=== PATIENT | male | born 1965 | race Caucasian/White ===

== ENCOUNTER → 2019-05-09 09:55 | Outpatient (CLI) | payer OTHER, SELFPAY ==
[2019-05-09 12:55] LABS: Anion Gap 6 (5-15); BUN 18 mg/dL (7-18); Calcium,Total 8.5 mg/dL (8.5-10.1); Chloride 105 mmol/L (98-107); Cholesterol 187 mg/dL (200); EST Glomerular Filtration Rate 93 mL/min (>60); Est Glom Filt Rate - Afr Amer 113 mL/min (>60); Glucose 90 mg/dL (74-106); High Density Lipoprotein 43 mg/dL; PSA,Total - Annual Screen 1.48 ng/mL (0.00-4.00); Potassium 3.7 mmol/L (3.5-5.1); Sodium Level 139 mmol/L (136-145); Triglycerides 154 mg/dL; Very Low Density Lipoprotein 31 mg/dL (5-40)
== END ==
PROVIDERS: Family Provider Family Medicine; PCP Family Medicine; Referring Provider Family Medicine; Visit Provider Nurse Practitioner Family
DX: Z00.00 Encounter for general adult medical examination without abnormal findings (principal)
CPT/HCPCS: 36415; 80048; 80061; 84153; G0103

== ENCOUNTER → 2020-04-27 10:31 | Outpatient (CLI) | payer OTHER, SELFPAY ==
[2020-04-27 12:51] LABS: Magnesium 1.6 mg/dL (1.6-2.6)
== END ==
PROVIDERS: PCP Family Medicine; Referring Provider Family Medicine; Visit Provider Family Medicine
DX: K21.9 Gastro-esophageal reflux disease without esophagitis (principal)
CPT/HCPCS: 36415; 83735; 84153; G0103

== ENCOUNTER 2020-05-01 12:53 | Emergency (ER) | payer OTHER, SELFPAY ==
[2020-05-01 12:53] VITALS: BP 157/109; PULSE 105; RESP 21; TEMP 36.7; O2SAT 100; BMI 36.3
[2020-05-01 12:57] VITALS: TEMP 36.7; O2SAT 100
[2020-05-01] MEDS: Ondansetron 4 MG/2 ML Vial IV (13:05)
[2020-05-01] MEDS: Morphine 4 MG/ML Syringe IV (13:05)
--- NOTE | 2020-05-01 13:13 | ED.DCSUM_ITS ---
- ER Visit Summary Date of Service: 05/01/20 Chief Complaint: Fall from 18 feet History of Present Illness: The patient is a [address] Pringle. He fell approximately 18 feet out of a tree stand. He denies any blow to the head or loss of consciousness. He is not on anticoagulants. He complains of neck pain is 5-10 in severity. Complains of back pain that is 6 out of 10 in severity. He complains of left shoulder pain is 8 out of 10 in severity. He denies any chest pain. However, he reports that initially he coughed up a small amount of blood. He denies being short of breath. Patient denies any right shoulder pain, wrist, or hip pain. Has been able to ambulate without difficulty. He denies pain to his feet. He denies any numbness or weakness. Physical Examination: Vitals: Stable. Afebrile. Neck: Mild diffuse tenderness palpation over his entire C-spine. No point tenderness. Back: Mild tenderness palpation over the lower thoracic spine and moderate tenderness of patient to the lumbar spine. General: A&O x 3. NAD. Cardiovascular exam: Regular rate and rhythm, no murmur, rub or gallop. Respiratory exam: Chest nontender. No crepitus. Clear to auscultation bilaterally. No wheezes or stridor. No pain with anterior posterior lateral compression of his chest. Abdominal exam: Soft, nontender, nondistended, normal bowel sounds. No pain in RUQ or LUQ specifically. No peritoneal signs. Extremity: Mild tenderness palpation over the left deltoid. No pain over the left clavicle.. Test Results: Clinical Impression(s) from Imaging Studies Cervical Spine X-Ray 05/01/20 13:20 IMPRESSION: Limited due to obscuration of the lower cervical spine. No obvious fracture or malalignment. Degenerative changes. Electronically Signed: Michel Carson MD (Bro[place]) at 14:08 EDT , Service support , Chest X-Ray 05/01/20 13:20 IMPRESSION: Left perihilar infiltrate could represent atelectasis, pulmonary contusion in setting of trauma or pneumonia, including aspiration type. Electronically Signed: Michel Carson MD (Brooks) at 14:09 EDT , Service support , Lumbar Spine X-Ray 05/01/20 13:20 IMPRESSION: Slight L1 compression fracture, indeterminate age. Recommend correlating with CT and/or MRI. Electronically Signed: Michel Carson MD (Brooks) at 14:13 EDT , Service support , Shoulder X-Ray 05/01/20 13:20 IMPRESSION: Possible nondisplaced fracture of the distal clavicle. Recommend correlating with clinical palpation. Electronically Signed: Michel Carson MD (Brooks) at 14:12 EDT , Service support , Thoracic Spine X-Ray 05/01/20 13:20 IMPRESSION: Degenerative changes. No demonstrated compression fracture. Electronically Signed: Michel Carson MD (Brooks) at 14:11 EDT , Service support , Emergency Department Course and Treatment: Patient had an IV placed. He was given morphine and Zofran IV. He is resting more comfortably. However, his pulse ox is down to 91% on room air. Treatment Plan: Had prolonged discussion with patient about his mechanism of injury and need for transfer to a trauma center. He agrees with this and asked for [facility]. He was discussed with the emergency department there will be transferred for further evaluation and treatment. Disposition: Transferred in improved condition. Impression: 1. Fall from 18 feet. 2. L1 compression fracture. 3. Pulmonary contusion. This note was generated with [employer] software. It may contain incorrect words, spelling, and punctuation that were not noted in review of the chart prior to signing ED Disposition - Plan for ED Patient: Referrals: Precious Pringle MD [Primary Care Provider] -
--- NOTE | 2020-05-01 13:20 | RAD_ITS ---
STUDY: X-RAY - LEFT SHOULDER REASON FOR EXAM: Male, 55 years old. FELL APPROX 18 FEET OUT OF TREE STAND. NOW COUGHING UP BLOOD AND SOB. TECHNIQUE: 3 view(s) of the shoulder. COMPARISON: None. FINDINGS: Normal glenohumeral articulation. Normal acromioclavicular joint. Normal acromion. On the AP view, there is subtle linear lucency along the inferior distal clavicle. Coracoclavicular joint is normal. Normal humeral head and visualized proximal humerus. The soft tissue structures are unremarkable. Normal visualized pulmonary apex. RAD/Shoulder min 2 Views IMPRESSION: Possible nondisplaced fracture of the distal clavicle. Recommend correlating with clinical palpation. Electronically Signed: Michel Carson MD (Brooks) at 14:12 EDT , Service support ,
--- NOTE | 2020-05-01 13:20 | RAD_ITS ---
STUDY: X-RAY - THORACIC SPINE REASON FOR EXAM: Male, 55 years old. FELL APPROX 18 FEET OUT OF TREE STAND. NOW COUGHING UP BLOOD AND SOB. TECHNIQUE: 3 view(s) of the thoracic spine were obtained. COMPARISON: None. FINDINGS: Normal kyphosis of the thoracic spine. There is no substantial scoliosis. There is multilevel endplate spondylosis of the thoracic vertebrae. There is multilevel disc space narrowing of the thoracic spine. No demonstrated fracture. The soft tissue structures are unremarkable. RAD/Thoracic Spine 3 Views IMPRESSION: Degenerative changes. No demonstrated compression fracture. Electronically Signed: Michel Carson MD (Brooks) at 14:11 EDT , Service support ,
--- NOTE | 2020-05-01 13:20 | RAD_ITS ---
STUDY: X-RAY CHEST REASON FOR EXAM: Male, 55 years old. FELL APPROX 18 FEET OUT OF TREE STAND. NOW COUGHING UP BLOOD AND SOB. TECHNIQUE: AP COMPARISON: None. FINDINGS: There is patchy opacity of the left perihilar lung. EKG leads project over the chest. There is no demonstrated pleural abnormality. Normal size heart. Normal mediastinum and moses. Normal visualized pulmonary arteries. Normal visualized aortic arch and descending thoracic aorta. Normal visualized thoracic spine. Normal visualized ribs, clavicles, and shoulders. There is no demonstrated abnormality of the visualized soft tissue structures of the upper abdomen. RAD/Chest 1 View (Portable) IMPRESSION: Left perihilar infiltrate could represent atelectasis, pulmonary contusion in setting of trauma or pneumonia, including aspiration type. Electronically Signed: Michel Carson MD (Brooks) at 14:09 EDT , Service support ,
--- NOTE | 2020-05-01 13:20 | RAD_ITS ---
STUDY: X-RAY - LUMBAR SPINE REASON FOR EXAM: Male, 55 years old. FELL APPROX 18 FEET OUT OF TREE STAND. NOW COUGHING UP BLOOD AND SOB. TECHNIQUE: 3 view(s) of the lumbar spine were obtained. COMPARISON: None FINDINGS: Normal lumbar lordosis. There is no substantial scoliosis. There is a normal alignment of the vertebrae. There is multilevel endplate spondylosis of the lumbar vertebrae. There is multi-level degenerative disc disease with multi-level disc space narrowing. There is slight compression deformity involving L1. There is atherosclerotic calcification of the abdominal aorta without a demonstrated aneurysm. RAD/Lumbar Spine 2 or 3 Views IMPRESSION: Slight L1 compression fracture, indeterminate age. Recommend correlating with CT and/or MRI. Electronically Signed: Michel Carson MD (Brooks) at 14:13 EDT , Service support ,
--- NOTE | 2020-05-01 13:20 | RAD_ITS ---
STUDY: X-RAY - CERVICAL SPINE REASON FOR EXAM: Male, 55 years old. FELL APPROX 18 FEET OUT OF TREE STAND. NOW COUGHING UP BLOOD AND SOB. TECHNIQUE: 3 view(s) of the cervical spine were obtained. COMPARISON: None FINDINGS: Normal anterior atlantoaxial articulation. Normal odontoid process. There is straightening of the normal cervical lordosis. The lower cervical spine is not well evaluated due to shoulder positioning. There is disc space narrowing and anterior spondylosis at C5-C6. No demonstrated fracture. No demonstrated subluxation. The soft tissue structures are unremarkable. RAD/Cerv Spine 2 or 3 Views IMPRESSION: Limited due to obscuration of the lower cervical spine. No obvious fracture or malalignment. Degenerative changes. Electronically Signed: Michel Carson MD (Brooks) at 14:08 EDT , Service support ,
[2020-05-01 13:53] VITALS: BP 152/85; PULSE 103; RESP 16; O2SAT 96
[2020-05-01] MEDS: HYDROmorphone 0.5 MG/0.5 ML SYRINGE IV ×2 (13:56→15:23)
[2020-05-01 14:00] VITALS: BP 167/91; PULSE 104; RESP 16; O2SAT 95
--- NOTE | 2020-05-01 14:44 | NURSING ---
ACCEPTED AT [facility]
[2020-05-01 15:00] VITALS: BP 168/99; PULSE 99; RESP 16; O2SAT 96
[2020-05-01 15:20] VITALS: BP 168/99; PULSE 99; RESP 16; O2SAT 96
--- NOTE | 2020-05-01 15:54 | ED.RN ---
Transport at bedside, report given. denies questions or needs.
== END 2020-05-01 16:15 | disposition short-term general hospital (02) ==
LOC: ED 13:50
PROVIDERS: Emergency Provider Emergency Medicine; PCP Family Medicine
DX: S32.019A Unspecified fracture of first lumbar vertebra, initial encounter for closed fracture (principal); S27.329A Contusion of lung, unspecified, initial encounter; M54.2 Cervicalgia; M25.512 Pain in left shoulder; W17.89XA Other fall from one level to another, initial encounter; Y93.9 Activity, unspecified; Y92.9 Unspecified place or not applicable; Y99.9 Unspecified external cause status; F17.290 Nicotine dependence, other tobacco product, uncomplicated; Z79.899 Other long term (current) drug therapy
CPT/HCPCS: 71045; 72040; 72072; 72100; 73030; 96374; 96375; 96376; 99284; A4216; J2405

== ENCOUNTER → 2020-09-07 11:24 | Outpatient (CLI) | payer OTHER, SELFPAY ==
--- NOTE | 2020-09-07 11:31 | RAD_ITS ---
STUDY: X-RAY CHEST REASON FOR EXAM: Male, 55 years old. SOB AND COUGH WITH CONGESTION. PATIENT STATES HAS A HX OF FALLING OUT OF A TREE THIS PAST , AND HE HAD TO HAVE A CHEST TUBE PUT IN. TECHNIQUE: PA and lateral views of the chest. COMPARISON: Comparison is made with prior study dated 05/01/2020. FINDINGS: New left pleural effusion with left basilar infiltration and/or atelectasis. The right lung is clear. Normal size heart. Normal mediastinum and moses. Normal visualized pulmonary arteries. Normal visualized aortic arch and descending thoracic aorta. There are diffuse degenerative changes of the visualized thoracic spine. Normal visualized ribs, clavicles, and shoulders. There is no demonstrated abnormality of the visualized soft tissue structures of the upper abdomen. RAD/Chest PA and Lateral IMPRESSION: Small left pleural effusion with left basilar infiltration and/or atelectasis. Electronically Signed: Moses Eckert MD at 12:19 EST , Service support ,
[2020-09-07 15:20] LABS: Absolute Lymphocyte Count 2.11 X10^3/uL (0.83-4.51); Basophil# 0.06 X10^3/uL; Basophil% 0.6 % (0-1); Eosinophil# 0.17 X10^3/uL; Eosinophils% 1.8 % (0-5); Hematocrit 39.8 % (40-54); Hemoglobin 13.3 g/dL (13.0-16.5); Lymphocyte # 2.11 X10^3/ul (4.0); Lymphocyte % 22.4 % (19-41); Mean Corp Hgb Conc 33.4 g/dL (32-36); Mean Corpuscular Hgb 31.4 pg (27.0-32.0); Mean Corpuscular Volume 94.1 fL (80-94); Mean Platelet Vol. 10.6 fl (6.2-12.0); Monocyte# 1.04 X10^3/uL; NRBC Flagged by Analyzer 0 % (0-5); Neutrophil # 6.01 X10^3/uL (2.7-7.7); Neutrophil % 63.8 % (47-70); Platelet Count 413 K/mm3 (150-450); RBC Distribution Width SD 44.2 fl (35.1-43.9); Red Blood Count 4.23 M/mm3 (4.6-6.2); White Blood Count 9.4 K/mm3 (4.4-11.0)
[2020-09-07 15:47] LABS: ALB/GLOB Ratio 0.8 RATIO (0.9-2.4); AST(SGOT) 14 U/L (15-37); Alanine Aminotransfer ALT/SGPT 28 U/L (16-61); Albumin, Serum 3.5 g/dL (3.2-5.0); Alkaline Phosphatase 81 U/L (45-117); Anion Gap 8 (5-15); BUN 18 mg/dL (7-18); BUN/Creat Ratio 19.5 RATIO (10-20); Calcium,Total 8.8 mg/dL (8.5-10.1); Chloride 105 mmol/L (98-107); Creatinine, Serum 0.92 mg/dL (0.70-1.30); EST Glomerular Filtration Rate 90 mL/min (>60); Est Glom Filt Rate - Afr Amer 109 mL/min (>60); Globulin 4.4 g/dL (2.2-4.2); Glucose 80 mg/dL (74-106); Potassium 3.7 mmol/L (3.5-5.1); Protein, Total 7.9 g/dL (6.4-8.2); Sodium Level 138 mmol/L (136-145); Thyroid Stim Hormone (TSH) 2.23 uIU/mL (0.358-3.74)
== END ==
LOC: MTLAB 11:27
PROVIDERS: PCP Family Medicine; Referring Provider Family Medicine; Visit Provider Family Medicine
DX: R06.02 Shortness of breath (principal)
CPT/HCPCS: 36415; 71046; 80053; 84443; 85025

== ENCOUNTER → 2020-09-10 11:17 | Outpatient (CLI) | payer OTHER, SELFPAY ==
[2020-09-10 10:20] VITALS: BMI 33.5
[2020-09-10 11:37] LABS: Erythrocyte Sedimentation Rate 75 mm/hr (0-20)
[2020-09-10 11:50] LABS: ALB/GLOB Ratio 0.8 RATIO (0.9-2.4); Globulin 4.5 g/dL (2.2-4.2); LDH 172 U/L (87-241); Protein, Total 8.1 g/dL (6.4-8.2); Rheumatoid Factor < 10.0 IU/mL (<15)
[2020-09-12 14:52] LABS: ANTINUCLEAR ANTIBODIES DIRECT Negative (Negative)
[2020-09-14 14:09] LABS: Cytoplasmic Ab (C-ANCA) <1:20 titer (Neg:<1:20)
[2020-09-14 15:05] LABS: CCP IgG Antibodies 6 units (0-19); Perinuclear Ab (P-ANCA) <1:20 titer (Neg:<1:20)
== END ==
PROVIDERS: PCP Family Medicine; Referring Provider Internal Medicine Critical Care Medicine; Visit Provider Internal Medicine Critical Care Medicine
DX: R06.02 Shortness of breath (principal); M25.50 Pain in unspecified joint; J90 Pleural effusion, not elsewhere classified
CPT/HCPCS: 36415; 83615; 84156; 85652; 86038; 86140; 86200; 86225; 86235; 86256; 86431; 87070; 87205

== ENCOUNTER → 2020-09-13 14:02 | Outpatient (CLI) | payer OTHER, SELFPAY ==
[2020-09-10 10:20] VITALS: BMI 33.5
--- NOTE | 2020-09-13 | FLU_PTH ---
PATIENT: CALDERON SOTO LOC: U#:[id number] AGE/SX: 60/M ROOM: RE09/13/[address]: Dr. Maury Crespo DO : 1965 BED: DIS: SPEC #: [id number] RECD: 09/13/20 14:59 STATUS: ISABEL REAsh #: [id number] SOPHIE: 09/13/20 00:[address]: Maury Crespo DEPT: CYTOLOGY RECD BY: Mariely Quiñones ENTERED: 09/14/20 07:12 SP TYPE: Fluid OTHR DR: Dr. Precious Pringle MD Tissues: THORACIC FLUID Procedures: Special Stain Group II Surgery Specimen Level IV Cytospin Fluid HEADER OPERATION: Ultrasound-guided left thoracentesis PRE-OP DIAGNOSIS: Pleural effusion TISSUE SUBMITTED: Thoracentesis fluid for cytology DIAGNOSIS CYTOLOGY Thoracentesis fluid for cytology (cytospin and cell block): Negative for malignant cells. See cytology study and comment. AM:ricardo 09/15/2020 COMMENT Clinical correlation is suggested. CYTOLOGY STUDY Slides are reviewed. The specimen contains polymorphous leukocytes and reactive mesothelial cells with a small population of macrophages. CYTOLOGY GROSS Received is 90 ml of blu cloudy fluid labeled with the patient's name and and designated per the requisition as thoracentesis. Submitted for cytology preparation including cell block. / ricardo 09/14/2020 TC:5 CPT: 98392, 47779
--- NOTE | 2020-09-13 14:03 | US_ITS ---
PROCEDURE: ULTRASOUND GUIDED THORACENTESIS. DATE: 09/13/2020. INDICATION: Male, 55 years old. Right pleural effusion. PHYSICIAN: Moses Eckert M.D. PROCEDURE: The risks, benefits, and alternatives to the procedure were explained to the patient. The specific risks of bleeding, infection, and pneumothorax requiring chest tube insertion were discussed and accepted. Written informed consent was obtained. Ultrasonographic evaluation of the right lower pleural space was carried out. An adequate pocket was identified. The patient was placed in the sitting, upright position. The overlying skin was prepped and draped in sterile fashion. 1% lidocaine was administered subcutaneously for local anesthesia. Under ultrasound guidance, a 5French thoracentesis needle/catheter system was advanced into the right posterior lower pleural fluid collection. Approximately 1550 mL of red-yellow fluid was drained. The catheter was removed, and a sterile dressing was applied. A specimen was collected and sent to the laboratory for analysis, as requested by the referring clinician. The patient tolerated the procedure well. A chest x-ray was ordered. US/Thoracentesis W US IMPRESSION: Ultrasound-guided right thoracentesis. Electronically Signed: Moses Eckert MD at 15:15 EST , Service support ,
[2020-09-13 14:26] VITALS: BP 129/77; BP 137/79; BP 145/91; PULSE 102; PULSE 105; PULSE 97; RESP 16; TEMP 37.2; O2SAT 95; O2SAT 98
--- NOTE | 2020-09-13 14:45 | RAD_ITS ---
STUDY: X-RAY CHEST REASON FOR EXAM: Male, 55 years old. Post thora TECHNIQUE: AP inspiration and expiration views. COMPARISON: Comparison is made with prior study dated 09/07/2020. FINDINGS: The patient is status post left thoracentesis. There is no evidence of pneumothorax. Residual pleural-parenchymal changes persist at the left lung base. RAD/Chest Insp/Exp 2 View IMPRESSION: Status post left thoracentesis. There is no evidence of pneumothorax. Mild persistent pleural-parenchymal changes at the left lung base. Electronically Signed: Moses Eckert MD at 14:58 EST , Service support ,
[2020-09-13 15:04] LABS: Cytology, Body Fluid / CSF SEE PATHOLOGY REPORT
[2020-09-13 15:21] LABS: Body Fluid Mononuclear WBC # 2.809 10^3/uL; Body Fluid Mononuclear WBC % 98.5 %; Body Fluid Polynuclear WBC # 0.042 10^3/uL; Body Fluid Polynuclear WBC % 1.5 %; Body Fluid Total Cells Counted 2.932 10^3/ul; Red Cell Count/Body Fluid 0.011 10^6/ul; White Blood Count/Body Fluid 2.851 10^3/uL
[2020-09-13 15:58] LABS: Appearance/Body Fluid SL CLDY; Auto B Fluid Analyzer BKGD Ct COUNTS W/IN LIMITS (W/IN LIMITS); Color/Body Fluid LT YEL; Source- Body Fluid THORACENTESIS
[2020-09-13 16:17] LABS: Body Fluid QC Type(s) BF3Q
[2020-09-13 16:18] LABS: Glucose, Body Fluid 115 mg/dL (40-70); LDH,Body Fluid 189 Units/l (Not Establ.); Protein, Body Fluid 5.1 g/dL (Not Establ.)
[2020-09-13 16:19] LABS: Lymphocytes 55 %; Monocytes 8 %; Neutrophil (Segs) 23 %
[2020-09-13 16:20] LABS: Macrophages 0 %; Mesothelial Cells 14 %; Other Cell Type/BF 0 %; Plasma Cell/BodyFluid 0 %
[2020-09-14 12:48] LABS: Pathologist Comment/Body Fluid Reviewed
== END ==
PROVIDERS: PCP Family Medicine; Referring Provider Internal Medicine Critical Care Medicine; Visit Provider Internal Medicine Critical Care Medicine
DX: J90 Pleural effusion, not elsewhere classified (principal)
CPT/HCPCS: 32555; 71046; 82945; 83615; 84157; 87070; 87075; 87205; 88108; 88305; 88313; 89050

== ENCOUNTER → 2020-09-16 10:41 | Outpatient (CLI) | payer OTHER, SELFPAY ==
[2020-09-16 09:46] VITALS: BMI 33.2
[2020-09-16 11:23] LABS: Albumin, Serum 3.3 g/dL (3.2-5.0); Uric Acid 4.5 mg/dL (3.5-7.2)
[2020-09-16 11:25] LABS: SARS-COV-2 TOTAL ABS Nonreactive (Nonreactive)
== END ==
PROVIDERS: PCP Family Medicine; Referring Provider Nurse Practitioner Acute Care; Visit Provider Nurse Practitioner Acute Care
DX: M25.50 Pain in unspecified joint (principal); M25.40 Effusion, unspecified joint; R76.8 Other specified abnormal immunological findings in serum; M79.10 Myalgia, unspecified site; Z20.822 Contact with and (suspected) exposure to COVID-19
CPT/HCPCS: 36415; 82040; 84550; 86769

== ENCOUNTER → 2021-07-14 | Outpatient (CLI) | payer OTHER, SELFPAY | END | disposition home or self-care (01) | LOC: LABSPEC 11:10 | PROVIDERS: PCP Family Medicine; Referring Provider Physician Assistant; Visit Provider Physician Assistant | DX: U07.1 COVID-19 (principal) | CPT/HCPCS: 87635; U0005; U0003 ==

== ENCOUNTER 2021-07-18 11:39 | Outpatient (CLI) | payer OTHER, SELFPAY ==
[2021-07-18 11:43] VITALS: BP 159/92; PULSE 92; RESP 16; TEMP 36.9; O2SAT 98; BMI 32.7
[2021-07-18] MEDS: 0.9% Saline Lock 10 ML Syringe IV (11:45)
[2021-07-18 12:57] VITALS: BP 159/92; PULSE 92; RESP 16; TEMP 37.3; O2SAT 98
[2021-07-18 13:57] VITALS: BP 132/93; PULSE 83; RESP 16; TEMP 37.3; O2SAT 98
== END 2021-07-18 14:10 | disposition home or self-care (01) ==
LOC: MS3OUT 11:39 → MS3 11:40
PROVIDERS: PCP Family Medicine; Referring Provider Nurse Practitioner Adult Health; Visit Provider Nurse Practitioner Adult Health
DX: Z23 Encounter for immunization (principal); U07.1 COVID-19
CPT/HCPCS: J7050; M0245; Q0245; A4216

== ENCOUNTER 2021-09-27 16:00 | Outpatient (CLI) | payer OTHER, SELFPAY ==
--- NOTE | 2021-09-27 16:22 | RAD_ITS ---
STUDY: X-RAY CHEST REASON FOR EXAM: Male, 56 years old. hx of left side pleural effusion dyspnea on exertion DYSPNEA TECHNIQUE: XR Chest 2 Views COMPARISON: 09/13/2020 FINDINGS: There is a left pleural effusion. Normal size heart. Normal mediastinum and moses. Normal visualized pulmonary arteries. There is atherosclerotic calcification of the aortic arch with tortuosity. There are diffuse degenerative changes of the visualized thoracic spine. There is degenerative osteoarthritis of the bilateral shoulders. There is no demonstrated abnormality of the visualized soft tissue structures of the upper abdomen. RAD/Chest PA and Lateral IMPRESSION: There is a left pleural effusion. Electronically Signed: Nathanael Sweeney MD at 16:40 EST ,
[2021-09-27 18:31] LABS: Cholesterol 177 mg/dL (200); High Density Lipoprotein 41 mg/dL; PSA,Total - Annual Screen 2.03 ng/mL (0.00-4.00); Triglycerides 232 mg/dL; Very Low Density Lipoprotein 46 mg/dL (5-40)
== END 2021-09-27 23:59 | disposition home or self-care (01) ==
PROVIDERS: PCP Family Medicine; Referring Provider Family Medicine; Visit Provider Family Medicine
DX: Z00.00 Encounter for general adult medical examination without abnormal findings (principal); R06.00 Dyspnea, unspecified
CPT/HCPCS: 36415; 71046; 80061; 84153; G0103

== ENCOUNTER 2021-10-08 07:33 | Outpatient (CLI) | payer OTHER, SELFPAY ==
--- NOTE | 2021-10-08 07:38 | CT_ITS ---
STUDY: CT CHEST WITHOUT CONTRAST REASON FOR EXAM: Male, 56 years old. Pleural effusion. Chronic pleural effusion after fall one year ago. RADIATION DOSAGE (If Supplied By Facility): CTDIvol = ( 18.99 ) mGy, DLP = ( 726.12 ) mGycm TECHNIQUE: Transaxial imaging was performed without the administration of intravenous contrast material. Multiplanar coronal and sagittal images were reformatted. Individualized dose optimization techniques were used for this CT. COMPARISON: None. FINDINGS: Small moderate left pleural effusion. There is no infiltrate or mass within the lungs. Question of a small loculated fluid collection in the left cardiophrenic angle. There is no demonstrated pleural abnormality. Normal heart and pericardium. There are calcifications of the coronary arteries. Normal mediastinum. Normal hilar regions. Normal unenhanced pulmonary arteries. Normal aorta arch and descending thoracic aorta. Mild degenerative changes of the thoracic spine. There is no evidence of fracture or subluxation. Small cyst in the segment 4A of the otherwise normal visualized liver. Small cyst off the upper pole of the left kidney. The upper abdomen is otherwise grossly normal. CT/Chest without Contrast IMPRESSION: 1. Small moderate left pleural effusion. 2. Question loculated effusion in the left cardiophrenic angle. 3. Degenerative changes of the thoracic spine. 4. Coronary artery calcifications. 5. Hepatic and left renal cysts. These require no further follow-up Electronically Signed: Phong Brower DO at 8:55 EST ,
== END 2021-10-08 23:59 | disposition home or self-care (01) ==
LOC: CT 07:34
PROVIDERS: PCP Family Medicine; Visit Provider Thoracic Surgery (Cardiothoracic Vascular Surgery)
DX: J90 Pleural effusion, not elsewhere classified (principal)
CPT/HCPCS: 71250

== ENCOUNTER 2021-10-24 11:22 | Outpatient (CLI) | payer OTHER, SELFPAY ==
--- NOTE | 2021-10-24 | FLU_PTH ---
PATIENT: CALDERON SOTO LOC: U#:[id number] AGE/SX: 56/M ROOM: RE10/24/[address]: Dr. Joshua Mendosa MD : 1965 BED: DIS: 10/24/2021 SPEC #: [id number] RECD: 10/24/21 12:42 STATUS: ISABEL COTA #: [id number] SOPHIE: 10/24/21 00:[address]: Joshua Mendosa DEPT: CYTOLOGY RECD BY: Mariely Quiñones ENTERED: 10/25/21 07:25 SP TYPE: Fluid OTHR DR: Dr. Precious Pringle MD Tissues: THORACIC FLUID Procedures: Special Stain Group II Surgery Specimen Level IV Cytospin Fluid HEADER OPERATION: Ultrasound-guided left thoracentesis PRE-OP DIAGNOSIS: Pleural effusion TISSUE SUBMITTED: Thoracentesis fluid for cytology DIAGNOSIS CYTOLOGY Thoracentesis fluid for cytology (cytospin): Consistent with lymphocytic effusion. See comment. AM:ricardo 10/26/2021 COMMENT Immunohistochemistry ([id number]) supports the above diagnosis. Lymphocytes are polytypic in nature with mild increase of B-lymphocytes. Correlation with clinical findings and appropriate follow up are necessary. The specimen is sent for flow cytometry study and results will be reported as an addendum. Case has been reviewed in consultation with Dr. Rosa who concurs with the above diagnosis. IDC:SJ CYTOLOGY STUDY Slides are reviewed. CYTOLOGY GROSS Received is 50 + 38 ml of milky cream-colored fluid labeled with the patient's name and and designated per the requisition as thoracentesis. Submitted for cytology preparation including cell block. / ricardo 10/25/2021 TC:? CPT: 71205, 09600 ADDENDUM ADDENDUM ADDENDUM ADDENDUM ADDENDUM ADDENDUM ADDENDUM 10/31/2021 10:18 ADDENDUM 10/31/2021 10:18 ADDENDUM 10/31/2021 10:18 ADDENDUM 10/31/2021 10:18 ADDENDUM 10/31/2021 10:18 FLOW CYTOMETRY ANALYSIS FROM [employer] INTERPRETATION: Pleural fluid: In the sample analyzed, there is no evidence of a B-cell or T-cell lymphoma. Please see complete report in e-chart or EMR
--- NOTE | 2021-10-24 | IMM_PTH ---
PATIENT: CALDERON SOTO LOC: U#:[id number] AGE/SX: 56/M ROOM: RE10/24/[address]: Dr. Joshua Mendosa MD : 1965 BED: DIS: 10/24/2021 SPEC #: [id number] RECD: 10/26/21 13:57 STATUS: ISABEL REQ #: [id number] SOPHIE: 10/24/21 00:[address]: Joshua Mendosa DEPT: IMMUNOHISTOCHEMISTRY RECD BY: Yessica Tidwell ENTERED: 10/26/21 13:59 SP TYPE: IMMUNO OTHR DR: Dr. Precious Pringle MD Tissues: THORACIC FLUID Procedures: BCL-2 (add) BCL-6 (add) Francisco Ret (add) CD10 (add) CD20 (add) CD23 (add) CD3 (add) CD43 (add) CD45 (add) CD5 (add) CD79A (add) CK20 (add) CK5-6 (add) CK7 (add) Pankeratin (initial) P40 (add) PHYSICIAN & [address] [address] SPECIMEN INFORMATION: Tissue Source: Thoracentesis Clinical Info: Pleural effusion Specimen Number: [id number] CPT code: 62243, 74500 x15 METHODOLOGY: Deparaffinized sections of prefer/formalin-fixed tissue or PAP/DQ stained slides are incubated with monoclonal/polyclonal antibodies/oligonucleotide probes. Localization is made via biotin free immunoperoxidase method. Appropriate controls are performed and reacted as expected. Results on target cell population are indicated in the following table: RESULTS: ANTIBODY / CLONE RESULT AE1-3 (AE1/AE3/PCK26) negative CK7 (OV-TL12/30) negative CK20 (KS20.8) negative CD3 (PS1) positive CD5 (SP10) positive CD10 (56C6) negative CD20 (L26) positive CD23 (1B12) negative CD43 (L60) positive CD45 (RP2/18) positive CD79a (11E3) positive BCL-2 (bcl-2/100/D5) positive BCL-6 (QP904A/A8) negative CALRET (polyclonal) negative CK5-6 (D5 & 1684) negative P40 (BC28) negative These tests were developed and their performance characteristics determined by [facility]. They may not have been cleared or approved by the U.S. Food and Drug Administration. The FDA has determined that such clearance or approval is not necessary. The above immunohistochemical/dualISH markers are ordered by Dr. Alvarado and reviewed by the Pathologist. INTERPRETATION: Thoracentesis (cell block): Consistent with lymphocytic effusion. See comment. SJ:ricardo 10/27/2021 Comment: Lymphocytes are polytypic in nature. Increased number of B lymphocytes are noted. Clinical correlation is necessary.
--- NOTE | 2021-10-24 11:26 | US_ITS ---
PROCEDURE: ULTRASOUND GUIDED THORACENTESIS. DATE: 10/24/2021. INDICATION: Male, 56 years old. Left pleural effusion. PHYSICIAN: Moses Eckert M.D. PROCEDURE: The risks, benefits, and alternatives to the procedure were explained to the patient. The specific risks of bleeding, infection, and pneumothorax requiring chest tube insertion were discussed and accepted. Written informed consent was obtained. Ultrasonographic evaluation of the left lower pleural space was carried out. An adequate pocket was identified. The patient was placed in the sitting, upright position. The overlying skin was prepped and draped in sterile fashion. 1% lidocaine was administered subcutaneously for local anesthesia. Under ultrasound guidance, a 5 Yoruba thoracentesis needle/catheter system was advanced into the left posterior lower pleural fluid collection. Approximately 1200 mL of chylous fluid was drained. The catheter was removed, and a sterile dressing was applied. A specimen was collected and sent to the laboratory for analysis, as requested by the referring clinician. The patient tolerated the procedure well. A chest x-ray was ordered. US/Thoracentesis W US IMPRESSION: Ultrasound-guided left thoracentesis. Electronically Signed: Moses Eckert MD at 12:39 EDT ,
[2021-10-24 12:01] VITALS: BP 160/98; BP 172/107; BP 180/115; PULSE 77; PULSE 82; PULSE 88; RESP 18; TEMP 37.1; O2SAT 97; O2SAT 98
[2021-10-24] MEDS: Lidocaine 2% (20 ml mdv) 20 ML Vial INFILT (12:03)
--- NOTE | 2021-10-24 13:30 | RAD_ITS ---
STUDY: X-RAY CHEST REASON FOR EXAM: Male, 56 years old. Pneumothorax -- post thoracentesis TECHNIQUE: AP inspiration and expiration views. COMPARISON: Comparison is made with prior chest radiograph dated 09/27/2021. FINDINGS: The lungs are clear and expanded. There is no demonstrated pleural abnormality. Normal size heart. Normal mediastinum and moses. Normal visualized pulmonary arteries. Normal visualized aortic arch and descending thoracic aorta. There are diffuse degenerative changes of the visualized thoracic spine. Normal visualized ribs, clavicles, and shoulders. There is no demonstrated abnormality of the visualized soft tissue structures of the upper abdomen. RAD/Chest Insp/Exp 2 View IMPRESSION: Status post left thoracentesis. No abnormality is seen. Electronically Signed: Moses Eckert MD at 12:42 EDT ,
== END 2021-10-24 23:59 | disposition home or self-care (01) ==
LOC: US 11:23
PROVIDERS: PCP Family Medicine; Referring Provider Thoracic Surgery (Cardiothoracic Vascular Surgery); Visit Provider Thoracic Surgery (Cardiothoracic Vascular Surgery)
DX: J90 Pleural effusion, not elsewhere classified (principal)
CPT/HCPCS: 32555; 71046; 88108; 88305; 88313; 88341; 88342

== ENCOUNTER → 2024-10-10 | Outpatient (CLI) | payer OTHER, SELFPAY ==
--- NOTE | 2024-10-10 12:43 | RAD_ITS ---
PROCEDURE: KNEE 4 OR MORE VIEWS REASON FOR EXAM: Bilateral knee pain worse on the left side. TECHNIQUE: 4 view(s) of the right knee COMPARISON: None. FINDINGS: No fracture. No suspicious bone lesion. Normal alignment. Marked degree of joint space narrowing involving the medial compartment of the knee joint. Mild degree of joint space narrowing of the patellofemoral joint. Minimal joint effusion. RAD/Knee 4 or More Views IMPRESSION: Marked degree of joint space narrowing involving the medial compartment of the knee joint. Tiny joint effusion. Reading Location: [id number]
--- NOTE | 2024-10-10 12:48 | RAD_ITS ---
PROCEDURE: KNEE 4 OR MORE VIEWS REASON FOR EXAM: Bilateral knee pain worse on the left side. TECHNIQUE: 4 view(s) of the left knee COMPARISON: None. FINDINGS: No fracture. No suspicious bone lesion. Marked degree of tricompartmental joint space narrowing and osteoarthritis. Small joint effusion. Prior staple fixation of the lateral tibial plateau. RAD/Knee 4 or More Views IMPRESSION: Marked degree of tricompartment osteoarthritis. Small joint effusion. Prior staple in the lateral tibial plateau. Reading Location: [id number]
[2024-10-10 15:40] LABS: Absolute Lymphocyte Count 1.72 X10^3/uL (0.83-4.51); Absolute Neutrophil Count 4.7 X10^3/uL (2.0-7.7); Basophil# 0.07 X10^3/uL; Basophil% 0.9 % (0-1); Eosinophil# 0.21 X10^3/uL; Eosinophils% 2.8 % (0-5); Hematocrit 33.4 % (40-54); Hemoglobin 11.2 g/dL (13.0-16.5); Lymphocyte # 1.72 X10^3/ul (0.83-4.51); Lymphocyte % 23.2 % (19-41); Mean Corp Hgb Conc 33.5 g/dL (32-36); Mean Corpuscular Volume 98.5 fL (80-94); Mean Platelet Vol. 10.8 fl (6.2-12.0); Monocyte# 0.62 X10^3/uL; Monocyte% 8.4 % (0-10); NRBC Flagged by Analyzer 0 % (0-5); Neutrophil # 4.74 X10^3/uL (2.7-7.7); Neutrophil % 64.2 % (47-70); Platelet Count 360 K/mm3 (150-450); RBC Distribution Width CV 14.2 % (11.6-14.6); RBC Distribution Width SD 50.7 fl (35.1-43.9); Red Blood Count 3.39 M/mm3 (4.6-6.2); White Blood Count 7.4 K/mm3 (4.4-11.0)
[2024-10-10 17:34] LABS: Erythrocyte Sedimentation Rate 17 mm/hr (0-20)
[2024-10-10 17:55] LABS: Rheumatoid Factor < 10.0 IU/mL (<15)
[2024-10-13 17:08] LABS: ANTINUCLEAR ANTIBODIES DIRECT Negative (Negative)
== END | disposition home or self-care (01) ==
PROVIDERS: PCP Family Medicine; Referring Provider Family Medicine; Visit Provider Family Medicine
DX: M17.0 Bilateral primary osteoarthritis of knee (principal)
CPT/HCPCS: 36415; 73564; 84550; 85025; 85652; 86038; 86140; 86431